=== PATIENT | female | born 1940 | race Caucasian/White ===

== ENCOUNTER 2020-04-24 09:58 | Emergency (ER) | payer MEDICARE, OTHER ==
[2020-04-24 10:08] VITALS: BP 129/68; PULSE 72
[2020-04-24] MEDS ORDERED: HYDROmorphone 0.5 MG/0.5 ML Syringe IVPUSH ONE ×4 (10:45→12:59)
--- NOTE | 2020-04-24 10:45 | EDM.PDOC ---
ED HPI GENERAL MEDICAL PROBLEM - General Chief Complaint: Lower Extremity Injury/Pain Stated Complaint: [facility] Time Seen by Provider: 04/24/20 10:37 - History of Present Illness INITIAL COMMENTS - FREE TEXT/NARRATIVE: 79-year-old female presents the emergency room brought in by EMS after falling at home. Patient states she was walking along with some flip-flops caught an uneven part of the floor her flip-flop folded over and she fell over. 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 Patient has an history of hypertension hyperlipidemia she takes a baby aspirin a day as well as lisinopril and atorvastatin. Patient denies any history of coronary artery disease. No history of stroke. Patient denies any other injury associated with this most unfortunate mishap from this morning. Right Hip Pain Score (Numeric/FACES): 6 - Related Data Allergies Allergy/AdvReac Type Severity Reaction Status Date / Time No Known Allergies Allergy Verified 04/24/20 10:08 Home Meds: Home Meds Aspirin [Halfprin] 81 mg PO DAILY 10/15/14 [History] Calcium Carbonate/Vitamin D3 [Caltrate 600+D 1500 MG-400 Units] 1 tab PO BID 10/15/14 [History] Lisinopril 10 mg PO DAILY 10/15/14 [History] atorvaSTATin [Lipitor] 20 mg PO DAILY 10/15/14 [History] Albuterol [IMW: Albuterol HFA] 2 puff .XX Q4H PRN #1 inhaler 10/30/16 [Rx] Azithromycin [Zithromax] 250 mg PO DAILY #6 tablet 10/30/16 [Rx] Hydrocodone/Chlorphen P-Stirex [Tussionex Pennkinetic Susp] 3 ml PO Q12H PRN #30 ml 10/30/16 [Rx] Past Medical History Cardiovascular History: Reports: Blood Clots/VTE/DVT, High Cholesterol, Hypertension Social & Family History - Tobacco Use Smoking Status *Q: Never Smoker - Caffeine Use Caffeine Use: Reports: None - Living Situation & Occupation Living situation: Reports: Occupation: Retired Review of Systems - Review of Systems Review Of Systems: See Below Constitutional: Reports: No Symptoms Eyes: Reports: No Symptoms Ears: Reports: No Symptoms Nose: Reports: No Symptoms Mouth/Throat: Reports: No Symptoms Respiratory: Reports: No Symptoms Cardiovascular: Reports: No Symptoms GI/Abdominal: Reports: No Symptoms Genitourinary: Reports: No Symptoms Musculoskeletal: Reports: Other (See history of present illness) Skin: Reports: No Symptoms Neurological: Reports: No Symptoms Psychiatric: Reports: No Symptoms ED EXAM, GENERAL - Physical Exam Exam: See Below Exam Limited By: No Limitations General Appearance: Alert, No Apparent Distress, Other (She is slightly uncomfortable and request pain medications but is answering questions very a ppropriately and seems otherwise fairly pleasant) Head: Atraumatic, Normocephalic Neck: Normal Inspection, Supple, Non-Tender, Full Range of Motion. No: Lymphadenopathy (L), Lymphadenopathy (R) Respiratory/Chest: No Respiratory Distress, Lungs Clear, Normal Breath Sounds Cardiovascular: Regular Rate, Rhythm, No Edema, No Murmur GI/Abdominal: Normal Bowel Sounds, Soft, Non-Tender Back Exam: Normal Inspection. No: CVA Tenderness (L), CVA Tenderness (R) Extremities: Other (Right foot has normal neurovascular status however is shortened and externally rotated she is got significant discomfort in the vicinity of the right hip) Neurological: Alert (.), Oriented, Normal Cognition Skin Exam: Warm, Dry, Intact Lymphatic: No Adenopathy Course - Vital Signs Last Recorded V/S: Last Vital Signs Temp 36.9 C 04/24/20 10:05 Pulse 72 04/24/20 10:05 Resp 20 04/24/20 10:05 BP 129/68 04/24/20 10:05 Pulse Ox 96 04/24/20 10:05 - Orders/Labs/Meds Orders: Active Orders 24 hr Category Date Time Status UA RFX MARK AND CULT IF INDIC [URIN] Stat Lab 04/24/20 10:46 Ordered Labs: Laboratory Tests 04/24/20 04/24/20 Range/Units 11:00 11:00 WBC 11.35 H (3.98-10.04) K/mm3 RBC 4.39 (3.98-5.22) M/mm3 Hgb 13.0 (11.2-15.7) gm/dl Hct 40.4 (34.1-44.9) % MCV 92.0 (79.4-94.8) fl MCH 29.6 (25.6-32.2) pg MCHC 32.2 (32.2-35.5) g/dl RDW Std Deviation 41.9 (36.4-46.3) fL Plt Count 236 (182-369) K/mm3 MPV 11.1 (9.4-12.3) fl Neut % (Auto) 80.1 H (34.0-71.1) % Lymph % (Auto) 11.2 L (19.3-51.7) % [place] % (Auto) 7.8 (4.7-12.5) % Eos % (Auto) 0.5 L (0.7-5.8) Baso % (Auto) 0.3 (0.1-1.2) % Neut # (Auto) 9.09 H (1.56-6.13) K/mm3 Lymph # (Auto) 1.27 (1.18-3.74) K/mm3 [place] # (Auto) 0.89 H (0.24-0.36) K/mm3 Eos # (Auto) 0.06 (0.04-0.36) K/mm3 Baso # (Auto) 0.03 (0.01-0.08) K/mm3 Manual Slide Review Normal smear Sodium 141 (136-145) mEq/L Potassium 4.0 (3.5-5.1) mEq/L Chloride 105 (98-107) mEq/L Carbon Dioxide 25 (21-32) mEq/L Anion Gap 15.0 (5-15) BUN 14 (7-18) mg/dL Creatinine 1.1 H (0.55-1.02) mg/dL Est Cr Clr Drug Dosing 36.70 mL/min Estimated GFR (MDRD) 48 (>60) mL/min BUN/Creatinine Ratio 12.7 L (14-18) Glucose 104 (83-115) mg/dL Calcium 9.2 (8.5-10.1) mg/dL Total Bilirubin 0.4 (0.2-1.0) mg/dL AST 28 (15-37) U/L ALT 27 (14-59) U/L Alkaline Phosphatase 51 (46-116) U/L Total Protein 7.4 (6.4-8.2) g/dl Albumin 3.9 (3.4-5.0) g/dl Globulin 3.5 gm/dL Albumin/Globulin Ratio 1.1 (1-2) Meds: Medications Discontinued Medications Generic Name Dose Route Start Last Admin Trade Name Ananda PRN Reason Stop Dose Admin Hydromorphone HCl 0.5 mg 04/24/20 10:45 04/24/20 10:51 Dilaudid IVPUSH 04/24/20 10:46 0.5 mg ONETIME ONE Administration Hydromorphone HCl 0.25 mg 04/24/20 11:40 04/24/20 11:50 Dilaudid IVPUSH 04/24/20 11:41 0.25 mg ONETIME ONE Administration - Re-Assessments/Exams Free Text/Narrative Re-Assessment/Exam: 04/24/20 12:16 I discussed the case with our orthopedic surgeon who is not available to operate tomorrow so the patient will need to go to [place]. Discussed the situation with Dr. Rosario with bone and joint through the 1 call beading machine operator at [facility]. Dr. Rosario accepts the patient. Departure - Departure Time of Disposition: 12:18 Disposition: DC/Tfer to Acute Hospital 02 Clinical Impression: Closed right hip fracture - Discharge Information Forms: ED Department Discharge Sepsis Event Note (ED) - Evaluation Sepsis Screening Result: No Definite Risk - Focused Exam Vital Signs: Vital Signs Temp Pulse Resp BP Pulse Ox 04/24/20 10:05 36.9 C 72 20 129/68 96 - My Orders Last 24 Hours: My Active Orders 04/24/20 10:46 UA RFX MARK AND CULT IF INDIC [URIN] Stat - Assessment/Plan Last 24 Hours: My Active Orders 04/24/20 10:46 UA RFX MARK AND CULT IF INDIC [URIN] Stat
--- NOTE | 2020-04-24 11:56 | CR ---
Pelvis and right hip: AP view of the pelvis was obtained as well as AP and crosstable lateral views of the right hip. Mildly angulated intertrochanteric fracture is seen within the right hip. Left hip prosthesis is seen. Bony structures are slightly osteopenic. No additional abnormality is noted. Impression: 1. Right hip fracture as described above. Diagnostic code #3 This report was dictated in MDT
[2020-04-24] MEDS ORDERED: Lactated Ringers 1,000 ML IV SCH (12:30)
== END 2020-04-24 13:15 ==
LOC: JD.ED 09:58
DX: S72.141A Displaced intertrochanteric fracture of right femur, initial encounter for closed fracture (principal); E78.00 Pure hypercholesterolemia, unspecified; I10 Essential (primary) hypertension; Z79.82 Long term (current) use of aspirin; Z79.899 Other long term (current) drug therapy; W19.XXXA Unspecified fall, initial encounter; Y92.009 Unspecified place in unspecified non-institutional (private) residence as the place of occurrence of the external cause
CPT/HCPCS: 36415; 73502; 80053; 85025; 96374; 96376; 99285; J1170; J7120; 99284